=== PATIENT | female | born 1965 | race Caucasian/White ===

== ENCOUNTER → 2020-07-31 12:47 | Outpatient (CLI) | payer OTHER, SELFPAY ==
--- NOTE | ~2020-07-31 | MM_ITS ---
EXAMINATION: MM screening [facility] w [facility] HISTORY: Screening mammogram TECHNIQUE: Craniocaudal and mediolateral oblique 3-D tomosynthesis images were obtained and synthetic 2-D images were generated. CAD analysis was submitted and interpreted. COMPARISON: 03/24/2019 bilateral digital screening mammogram BREAST PARENCHYMAL COMPOSITION: The breasts are almost entirely fatty. FINDINGS: There is no evidence of suspicious mass, calcification, or architectural distortion to sugg est malignancy in either breast. There has been no suspicious interval change. IMPRESSION: 1. No mammographic evidence of malignancy. 2. Recommend routine screening mammography in one year. BI-RADS Category 1: Negative Reviewed, dictated and finalized at location B.
== END ==
DX: Z12.31 Encounter for screening mammogram for malignant neoplasm of breast (principal)
CPT/HCPCS: 77063; 77067

== ENCOUNTER → 2021-09-24 12:48 | Outpatient (CLI) | payer OTHER, SELFPAY ==
--- NOTE | ~2021-09-24 | MM_ITS ---
EXAMINATION: MM screening [facility] BI w zuly HISTORY: Screening mammogram TECHNIQUE: Craniocaudal and mediolateral oblique 3-D tomosynthesis images were obtained and synthetic 2-D images were generated. CAD analysis was submitted and interpreted. COMPARISON: 07/31/2020, 03/24/2019 BREAST PARENCHYMAL COMPOSITION: The breasts are almost entirely fatty. FINDINGS: There is no evidence of suspicious mass, calcification, or architectural distortion to sugg est malignancy in either breast. There has been no suspicious interval change. IMPRESSION: 1. No mammographic evidence of malignancy. 2. Recommend routine screening mammography in one year. 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
== END ==
DX: Z12.31 Encounter for screening mammogram for malignant neoplasm of breast (principal)
CPT/HCPCS: 77063; 77067

== ENCOUNTER → 2022-10-02 12:25 | Outpatient (CLI) | payer BC, SELFPAY ==
--- NOTE | ~2022-10-02 | MM_ITS ---
EXAMINATION: MM screening [facility] BI w zuly HISTORY: Screening mammogram TECHNIQUE: Craniocaudal and mediolateral oblique 3-D tomosynthesis images were obtained and synthetic 2-D images were generated. CAD analysis was submitted and interpreted. COMPARISON: 09/24/2021, 07/31/2020, 03/24/2019 BREAST PARENCHYMAL COMPOSITION: The breasts are almost entirely fatty. FINDINGS: No suspicious mass, calcification, or architectural distortion are identified in either cali ast to suggest malignancy. There has been no suspicious interval change. IMPRESSION: 1. No mammographic evidence of malignancy. 2. Recommend routine screening mammography in one year. BI-RADS Category 1: Negative Reviewed, dictated and finalized at location A. 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
== END ==
DX: Z12.31 Encounter for screening mammogram for malignant neoplasm of breast (principal)
CPT/HCPCS: 77063; 77067

== ENCOUNTER 2023-02-02 13:49 | Outpatient (NON) | payer OTHER, SELFPAY | END 2023-02-02 13:50 | disposition home or self-care (01) | LOC: ANHLAB 13:50 | PROVIDERS: Visit Provider Nurse Practitioner | DX: C44.91 Basal cell carcinoma of skin, unspecified (principal) | CPT/HCPCS: 88305; 88331 ==

== ENCOUNTER 2023-11-27 08:26 | Outpatient (CLI) | payer OTHER, SELFPAY ==
--- NOTE | ~2023-11-27 | CT_ITS ---
EXAMINATION: CT orbit BI wo/w con DATE: 11/27/2023 09:01 INDICATION: Thyroid eye disease. Right eye redness and swelling. TECHNIQUE: Computed tomography (CT) of the orbits was performed without and with 75 mL Omnipaque 350 intravenous contrast. Automated exposure control and iterative reconstruction technique were employed . The dose-length product was 378.10 mGy-cm. COMPARISON: None FINDINGS: Right frontal and ethmoid sinuses are completely opacified and expanded with erosions of th e sinus cervantes. There is mass effect on right medial rectus muscle with right-sided proptosis. The ext raocular muscles are normal in size. There is moderate mucosal thickening in sphenoid sinus and mild mucosal thickening in the maxillary sinuses. The mastoid air cells are normal. IMPRESSION: 1. Expansile right frontal and ethmoid sinus disease with right-sided proptosis, consistent with fron toethmoidal mucocele. 2. No evidence of thyroid eye disease. Reviewed, dictated and finalized at location E. ARCHITECT IMPRESSION: 1. Expansile right frontal and ethmoid sinus disease with right-sided proptosis , consistent with frontoethmoidal mucocele. 2. No evidence of thyroid eye disease.
[2023-11-27 09:00] LABS: Estimated Glomerular Filt Rate 51
== END 2023-11-27 08:27 | disposition home or self-care (01) ==
LOC: ANHIMG 08:29
PROVIDERS: PCP Nurse Practitioner Family
DX: H57.89 Other specified disorders of eye and adnexa (principal); E07.9 Disorder of thyroid, unspecified
CPT/HCPCS: 70482; Q9967